=== PATIENT | female | born 2000 | race American Indian/Alaskan Native ===

== ENCOUNTER 2020-08-13 08:39 | Emergency (ER) | payer SELFPAY ==
--- NOTE | 2020-08-13 13:51 | Emergency Department Report ---
- General Chief Complaint: Skin/Abscess/Foreign Body Stated Complaint: BLEEDING Time Seen by Provider: 08/13/20 13:24 Source: patient Mode of arrival: Ambulatory Limitations: No Limitations - History of Present Illness Initial Comments: CC: "I just need my wound checked out." This is a 19-year-old female with history of -induced hypertension who presents with bleeding from incision. She had a on August 04. She feels that her panties may have caused some irritation. She has been prescribed labetalol for . She does not take this medication because it had 12 hours has not transpired since the last previous dose. She denies headache. She denies blurry vision. She denies chest pain. She denies pain at the incision. She denies fever. She does not have any other symptoms. -: Gradual, days(s) (Yesterday 1 day ago) Location: other (Suprapubic region) Place: home Associated Symptoms: none - Related Data Previous Rx's Medication Instructions Recorded Last Taken Type Acetaminophen/Codeine 1 tab PO Q6H PRN #20 tab 08/27/14 Unknown Rx [Acetaminophen-Codeine #3 TAB] Ibuprofen [Motrin] 600 mg PO Q8H PRN #40 tablet 08/27/14 Unknown Rx Ibuprofen [Motrin 800 MG tab] 800 mg PO Q8HR PRN #30 tablet 12/03/15 Unknown Rx traMADoL [Ultram 50 MG tab] 50 mg PO Q6HR PRN #15 tablet 12/03/15 Unknown Rx Ibuprofen [Motrin] 600 mg PO Q8H PRN #20 tablet 09/06/18 Unknown Rx Allergies Allergy/AdvReac Type Severity Reaction Status Date / Time No Known Allergies Allergy Verified 08/27/14 21:32 ED Review of Systems ROS: Stated complaint: BLEEDING Other details as noted in HPI Comment: All other systems reviewed and negative Constitutional: denies: fever, malaise Respiratory: denies: cough, shortness of breath Gastrointestinal: denies: abdominal pain, nausea, vomiting ED Past Medical Hx - Past Medical History Previous Medical History?: No - Surgical History Past Surgical History?: Yes Additional Surgical History: C section - Social History Smoking Status: Never Smoker Substance Use Type: None - Medications Home Medications: Home Medications Medication Instructions Recorded Confirmed Last Taken Type Acetaminophen/Codeine 1 tab PO Q6H PRN #20 tab 08/27/14 Unknown Rx [Acetaminophen-Codeine #3 TAB] Ibuprofen [Motrin] 600 mg PO Q8H PRN #40 tablet 08/27/14 Unknown Rx Ibuprofen [Motrin 800 MG tab] 800 mg PO Q8HR PRN #30 tablet 12/03/15 Unknown Rx traMADoL [Ultram 50 MG tab] 50 mg PO Q6HR PRN #15 tablet 12/03/15 Unknown Rx Ibuprofen [Motrin] 600 mg PO Q8H PRN #20 tablet 09/06/18 Unknown Rx ED Physical Exam - General Limitations: No Limitations General appearance: alert, in no apparent distress - Head Head exam: Present: atraumatic, normocephalic - Eye Eye exam: Present: normal appearance - ENT ENT exam: Present: mucous membranes moist - Neck Neck exam: Present: normal inspection, full ROM - Respiratory Respiratory exam: Present: normal lung sounds bilaterally. Absent: respiratory distress, wheezes, rales, rhonchi - Cardiovascular Cardiovascular Exam: Present: regular rate, normal rhythm. Absent: systolic murmur, diastolic murmur, rubs, gallop - GI/Abdominal GI/Abdominal exam: Present: soft, normal bowel sounds, other ( incision: Steri-Strips intact, no dehiscence, dried blood noted, no active bleeding no discharge). Absent: distended, tenderness, guarding, rebound - Extremities Exam Extremities exam: Present: normal inspection - Back Exam Back exam: Present: normal inspection - Neurological Exam Neurological exam: Present: alert, oriented X3 - Psychiatric Psychiatric exam: Present: normal affect, normal mood - Skin Skin exam: Present: warm, dry, intact, normal color. Absent: rash ED Course Vital Signs 08/13/20 08:53 Temperature 98.4 F Pulse Rate 77 Respiratory 18 Rate Blood Pressure 177/127 O2 Sat by Pulse 98 Oximetry ED Medical Decision Making - Medical Decision Making 1. Mild incisional bleeding: Patient given reassurance and return precautions. She has follow-up with her senior teller in 5 days on August 18 2. -induced hypertension patient did not take labetalol prior to arr ival. I have provided education. She understands she is allowed to take the medication twice a day with 9 to 10 hours of each dose. Patient stated that hypertension began in the second trimester. She does not have signs or symptoms otherwise to indicate preeclampsia. Critical care attestation.: If time is entered above; I have spent that time in minutes in the direct care of this critically ill patient, excluding procedure time. ED Disposition Clinical Impression: induced hypertension, Postoperative bleeding from incision Disposition: DC-01 TO HOME OR SELFCARE Is pt being admited?: No Does the pt Need Aspirin: No Condition: Stable Instructions: Hypertension (ED) Referrals: PRIMARY CARE, [Primary Care Provider] - 3-5 Days
[2020-08-13 14:14] VITALS: BP 162/112
== END 2020-08-13 14:07 | disposition home or self-care (01) ==
LOC: ED 08:39
DX: O13.9 Gestational [pregnancy-induced] hypertension without significant proteinuria, unspecified trimester (principal); L76.22 Postprocedural hemorrhage of skin and subcutaneous tissue following other procedure; Z79.899 Other long term (current) drug therapy
CPT/HCPCS: 99282